=== PATIENT | female | born 1950 | race Caucasian/White ===

== ENCOUNTER 2019-01-09 10:35 | Outpatient (CLI) | payer BC, MEDICARE ==
[~2019-01-09 10:35] MED LIST: Gadobenate Dimeglumine 529 MG/1 ML (20ML VIAL) ONE
--- NOTE | 2019-01-09 13:13 | MRI ---
MRI RIGHT KNEE WITH AND WITHOUT IV CONTRAST: HISTORY: Primary osteoarthritis, right knee. Abnormal finding on plain film examination. FINDINGS: Multiplanar, multisequence MRI examination of the right knee is performed. In the proximal fibula, t here are eccentrically located mixed T2 hyperintense and hypointense changes, as well as T1 hypointen se changes in the proximal fibula. There appears to be probable cortical breakthrough involving the anterior portion of this bone lesion. There is no significant adjacent abnormal marrow edema. There is an associated conjoined matrix. No associated soft tissue edema. Fairly extensive complex tear of the lateral meniscus with multiloculated parameniscal cysts, the com bination of which measures approximately 1.1 x 3.4 cm, anterior to the anterior horn, in the posterio r aspect of Hoffa's fat. There is minimal extension of this parameniscal cyst, medial to the medial patellar retinaculum. The medial meniscus appears intact. The cruciate ligaments and collateral li gament complexes appear intact. Anterior and posterior cruciate ligaments appear intact. There is s ome generalized tricompartment cartilage loss. IMPRESSION: 1. 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 2. Extensive complex tear of the lateral meniscus with anterior parameniscal cystic changes. 3. Tricompartment articular cartilage loss. No significant joint effusion. Other findings as above . POS: [facility]
== END 2019-01-09 10:36 | disposition home or self-care (01) ==
LOC: BICMRI 10:35
PROVIDERS: ATTEND Orthopaedic Surgery
DX: M17.11 Unilateral primary osteoarthritis, right knee (principal); M25.461 Effusion, right knee; S83.281A Other tear of lateral meniscus, current injury, right knee, initial encounter
CPT/HCPCS: 82565

== ENCOUNTER 2019-03-29 11:47 | Outpatient (CLI) | payer BC, MEDICARE ==
--- NOTE | 2019-03-29 13:16 | MMO ---
Bilateral MAMMO Bilat Screen [facility]. CLINICAL HISTORY: Patient is 68 years old and is seen for screening. The patient has the following family history of breast cancer: mother, at age 79. The patient has no personal history of cancer. VIEWS: The views performed were: bilateral craniocaudal with tomosynthesis; bilateral mediolateral oblique with tomosynthesis; and right exaggerated craniocaudal. FILMS COMPARED: The present examination has been compared to prior imaging studies performed at [facility] on 01/17/2015, 01/27/2016 and 03/14/2017. MAMMOGRAM FINDINGS: The breasts are heterogeneously dense, which could obscure a lesion on mammography. Right breast: There are no suspicious masses, calcifications or areas of architectural distortion. There are benign appearing calcifications in the right breast. Left breast: Possible architectural distortion in the deep mid portion of the breast only seen in the MLO view with karla. In the right breast, there are no suspicious masses, calcifications or areas of architectural distortion. IMPRESSION: FINDING IN THE LEFT BREAST REQUIRES ADDITIONAL EVALUATION. ADDITIONAL PROJECTIONS (LEFT MEDIOLATERAL OBLIQUE SPOT COMPRESSION AND LEFT MEDIOLATERAL) ARE RECOMMENDED. ULTRASOUND IF ARCHITECTURAL DISTORTION PERSISTS. THE RESULTS OF THIS EXAM WERE SENT TO THE PATIENT. ACR BI-RADS Category 0 - Incomplete: Need additional imaging evaluation. [facility] will notify the patient of the need for additional imaging services. MAMMOGRAPHY NOTE: 1. A negative mammogram report should not delay a biopsy if a dominant of clinically suspicious mass is present. 2. Approximately 10% to 15% of breast cancers are not detected by mammography. 3. Adenosis and dense breasts may obscure an underlying neoplasm. Reported by: GUNNAR ART MD Electonically Signed: [id number]
== END 2019-03-29 11:48 | disposition home or self-care (01) ==
LOC: BICMAMMO 11:47
PROVIDERS: ATTEND Family Medicine
DX: Z12.31 Encounter for screening mammogram for malignant neoplasm of breast (principal); Z80.3 Family history of malignant neoplasm of breast
CPT/HCPCS: 77063; 77067

== ENCOUNTER 2019-04-09 09:21 | Outpatient (CLI) | payer BC, MEDICARE ==
--- NOTE | 2019-04-09 10:23 | MMO ---
Left Breast MAMMO Unilat Diag [facility]. CLINICAL HISTORY: Patient is 68 years old and is seen for additional evaluation requested from prior study. The patient has the following family history of breast cancer: mother, at age 79. The patient has no personal history of cancer. VIEWS: The views performed were: left mediolateral oblique spot compression with tomosynthesis and left mediolateral with tomosynthesis. FILMS COMPARED: The present examination has been compared to prior imaging studies performed at [facility] on 01/17/2015, 01/27/2016, 03/14/2017 and 03/29/2019. MAMMOGRAM FINDINGS: The breast is heterogeneously dense, which could obscure a lesion on mammography. Additional evaluation was performed for the additional evaluation finding - 0 in the left breast seen on 03/29/2019. On the present examination, additional evaluation finding - 0 does not persist. There are no suspicious masses, suspicious calcifications, or new areas of architectural distortion. IMPRESSION: THERE IS NO MAMMOGRAPHIC EVIDENCE OF MALIGNANCY. THE FINDINGS AND RECOMMENDATIONS WERE DISCUSSED WITH THE PATIENT PRIOR TO HER LEAVING THE CENTER. A ROUTINE FOLLOW-UP MAMMOGRAM IN 1 YEAR IS RECOMMENDED. THE RESULTS OF THIS EXAM WERE SENT TO THE PATIENT. ACR BI-RADS Category 2 - Benign finding MAMMOGRAPHY NOTE: 1. A negative mammogram report should not delay a biopsy if a dominant of clinically suspicious mass is present. 2. Approximately 10% to 15% of breast cancers are not detected by mammography. 3. Adenosis and dense breasts may obscure an underlying neoplasm. Reported by: YON GALARZA MD Electonically Signed: [id number]
== END 2019-04-09 09:22 | disposition home or self-care (01) ==
LOC: BICMAMMO 09:21
PROVIDERS: ATTEND Family Medicine
DX: Z12.31 Encounter for screening mammogram for malignant neoplasm of breast (principal); Z80.3 Family history of malignant neoplasm of breast
CPT/HCPCS: G0279